=== PATIENT | male | born 2000 | race Caucasian/White ===

== ENCOUNTER 2025-03-25 18:32 | Emergency (ER) | payer OTHER, SELFPAY ==
--- OUTSIDE RECORDS SUMMARY | 2025-03-25 18:38 | XMS_ITS | Patient Health Record ---
Author Organization [employer] Address [address] [place] [id number] Care Team Providers Care Water Server Name Role Phone Kiran Haynes Primary Care Provider Reason For Referral No Information Immunizations Vaccine Route Administration Date Status Comme nts Coronavirus Moderna #1 IM Intramuscular 11/01/2021 Adminis tered DTaP, 6yrs & younger-VFC Unknown 2001 Administere d DTaP, 6yrs & younger-VFC Unknown 2001 Administere d DTaP, 6yrs & younger-VFC Unknown 01/28/2002 Administere d DTaP, 6yrs & younger-VFC Unknown 01/20/2003 Administere d DTaP, 6yrs & younger-VFC Unknown 07/26/2005 Administere d Gardasil-VFC Unknown 04/06/2014 Administered Gardasil-VFC Unknown 06/22/2014 Administered Gardasil-VFC Unknown 04/28/2015 Administered Hepatitis A-Ped-VFC Unknown 04/06/2014 Administered Hepatitis A-Ped-VFC Unknown 04/28/2015 Administered Hepatitis B-Ped-VFC Unknown 2001 Administered Hepatitis B-Ped-VFC Unknown 2001 Administered Hepatitis B-Ped-VFC Unknown 01/28/2002 Administered HIB-VFC Unknown 2001 Administered HIB-VFC Unknown 2001 Administered HIB-VFC Unknown 01/28/2002 Administered HIB-VFC Unknown 07/22/2002 Administered MENINGOCOCCAL - VFC Unknown 04/06/2014 Administered MENINGOCOCCAL - VFC Unknown 04/17/2019 Administered MMR-VFC Unknown 07/26/2005 Administered Pneumococcal-given in the past Unknown 2001 Administered Pneumococcal-given in the past Unknown 2001 Administered Pneumococcal-given in the past Unknown 07/22/2002 Administered Polio-VFC Unknown 2001 Administered Polio-VFC Unknown 2001 Administered Polio-VFC Unknown 01/20/2003 Administered Polio-VFC Unknown 07/26/2005 Administered Tdap 11-100 Yrs old-VFC Unknown 04/06/2014 Administered Varicella-VFC Unknown 04/06/2014 Administered Plan Of Treatment No Information
[2025-03-25 18:56] VITALS: BP 131/81; PULSE 98; TEMP 36.6; O2SAT 98; BMI 29.8
[2025-03-25 19:17] LABS: Hematocrit 46.7 % (37-53); Hemoglobin 16.20 g/dL (11.27-16.99); Mean Corpuscular HGB Conc 34.7 g/dL (30-55); Mean Corpuscular Hemoglobin 29.9 pg (27-33); Mean Corpuscular Volume 86.3 fl (82-101); Nucleated Red Blood Cells % 0 %; Platelet Count 335 10^3/cmm (157-399); Red Blood Count 5.41 10^6/uL (3.85-5.65); White Blood Count 7.35 10^3/uL (3.29-11.43)
--- NOTE | 2025-03-25 19:19 | ED_ITS ---
HPI - Abdominal Pain 2 General: Chief Complaint: Abdominal Pain Stated Complaint: NVD Time Seen by Provider: 03/25/25 19:02 History of Present Illness: 24-year-old man who presents to the [facility] room with nausea vomiting and abdominal pain it has been going on for 2 days now. Says pain is everywhere but most focal in his left upper quadrant. He is had no abdominal surgeries before. He is had diarrhea. No fevers. No altered mental status. Related Data Previous Rx's ?Medication ?Instructions ?Recorded ondansetron 4 mg disintegrating 4 mg PO Q8H PRN nausea and 03/25/25 tablet vomiting #10 tabs tramadol 50 mg tablet 50 mg PO Q8H PRN pain #10 ta bs 03/25/25 Allergies Allergy/AdvReac Type Severity Reaction Status Date / Time No Known Allergies Allergy Verified 03/25/25 19:00 Review of Systems 2 Narrative: Constitutional symptoms: Negative except as documented in HPI. Skin symptoms: Negative except as documented in HPI. Eye symptoms: Negative except as documented in HPI. ENMT symptoms: Negative except as documented in HPI. Respiratory symptoms: Negative except as documented in HPI. Cardiovascular symptoms: Negative except as documented in HPI. Gastrointestinal symptoms: Negative except as documented in HPI. Genitourinary symptoms: Negative except as documented in HPI. Musculoskeletal symptoms: Negative except as documented in HPI. Neurologic symptoms: Negative except as documented in HPI. Psychiatric symptoms: Negative except as documented in HPI. Endocrine symptoms: Negative except as documented in HPI. Physical Exam 2 Narrative: EXAM NARRATIVE: General: Alert, no acute distress. Skin: Warm, dry. Head: Normocephalic, atraumatic. Neck: Supple, trachea midline. Eye: Extraocular movements are intact. Ears, nose, mouth and throat: Tacky oral mucosa Cardiovascular: Regular, Normal peripheral perfusion. Respiratory: Lungs are clear to auscultation, respirations are non-labored, breath sounds are equal, Symmetrical chest wall expansion. Gastrointestinal: Soft, diffuse tenderness, worse in the left upper quadrant, Non distended Musculoskeletal: Normal ROM, no deformity. Neurological: Alert and oriented, No focal neurological deficit observed. Psychiatric: Cooperative, appropriate mood & affect. Course 2 Vital Signs: Vital signs: Vital Signs Temperature 97.9 F 03/25/25 18:56 Pulse Rate 98 03/25/25 18:56 Blood Pressure 131/81 03/25/25 18:56 Pulse Oximetry 98 03/25/25 18:56 Oxygen Delivery Me thod Room Air 03/25/25 18:56 MDM - Abdominal Pain Medical Decision Making Medical decision making: Differential diagnosis for this patient with nausea and vomiting including but not limited to and based on the above HPI, review of systems and physical exam: Urinary tract infection. Appendicitis. Cholecystitis. Colitis. small bowel obstruction. crohn's flare. pancreatitis. gastritis. peptic ulcer. cyclic vomiting. Viral illness. Influenza. COVID. Orders placed to evaluate differential diagnosis based on the above differential, HPI and physical exam Lab Review: Laboratory results were reviewed and interpreted by myself the emergency room physician. No leukocytosis. No anemia. No renal failure. CRP is normal. Urinalysis is negative for infection. I reviewed the patient's medical record. Reexamination: Patient remained stable. No increased work of breathing. No altered mental status. No focal motor deficits. Assessment and plan: Viral gastroenteritis Abdominal pain Dehydration Nausea and vomiting ?Normal saline bolus, Toradol and IV Zofran. - Discharged home - Discussed plan with patient. Answered any questions. - Evaluation and treatment of this problem were appropriate in the emergency setting. Lab Data 03/25/25 19:10 03/25/25 19:10 Labs/Radiology: Laboratory Results WBC 7.35 10^3/uL (3.29-11.43) 03/25/25 19:10 RBC 5.41 10^6/uL (3.85-5.65) 03/25/25 19:10 Hgb 16.20 g/dL (11.27-16.99) 03/25/25 19:10 Hct 46.7 % (37-53) 03/25/25 19:10 MCV 86.3 fl (82-101) 03/25/25 19:10 MCH 29.9 pg (27-33) 03/25/25 19:10 MCHC 34.7 g/dL (30-55) 03/25/25 19:10 RDW 12.0 % (12.1-15.1) L 03/25/25 19:10 Plt Count 335 10^3/cmm (157-399) 03/25/25 19:10 MPV 9.5 fL (7.4-10.4) 03/25/25 19:10 Neut % (Auto) 50.6 % 03/25/25 19:10 Lymph % (Auto) 33.3 % 03/25/25 19:10 Stearns % (Auto) 12.5 % 03/25/25 19:10 Eos % (Auto) 2.4 % 03/25/25 19:10 Baso % (Auto) 1.1 % 03/25/25 19:10 Neut # (Auto) 3.71 10^3/uL (1.8-7.7) 03/25/25 19:10 Lymph # (Auto) 2.5 10^3/uL (0.8-4.8) 03/25/25 19:10 Stearns # (Auto) 0.9 10^3/uL (0.2-0.9) 03/25/25 19:10 Eos # (Auto) 0.2 10^3/uL (0.0-0.8) 03/25/25 19:10 Baso # (Auto) 0.1 10^3/uL (0.0-0.1) 03/25/25 19:10 Nucleated RBC % (auto) 0 % 03/25/25 19:10 Nucleated RBCs # 0.0 /100WBC 03/25/25 19:10 Sodium 140 mmol/L (136-145) 03/25/25 19:10 Potassium 3.7 mmol/L (3.5-5.1) 03/25/25 19:10 Chloride 104 mmol/L (98-107) 03/25/25 19:10 Carbon Dioxide 23 mmol/L (22-29) 03/25/25 19:10 Anion Gap 16.7 (5-19) 03/25/25 19:10 BUN 15 mg/dL (6-20) 03/25/25 19:10 Creatinine 0.9 mg/dL (0.7-1.2) 03/25/25 19:10 GFR Calculation 104.6 mL/min (90-130) 03/25/25 19:10 Glucose 86 mg/dL (65-115) 03/25/25 19:10 Calculated Osmolality 290 mOsm/kg (285-295) 03/25/25 19:10 Calcium 9.3 mg/dL (8.5-10.5) 03/25/25 19:10 Total Bilirubin 0.8 mg/dL (0.15-1.2) 03/25/25 19:10 AST 22 U/L (0-40) 03/25/25 19:10 ALT 26 U/L (0-41) 03/25/25 19:10 Alkaline Phosphatase 53 U/L (40-130) 03/25/25 19:10 C-Reactive Protein 3.0 mg/L (0.0-4.9) 03/25/25 19:10 Total Protein 7.5 g/dL (6.6-8.7) 03/25/25 19:10 Albumin 4.8 g/dL (3.5-5.2) 03/25/25 19:10 Globulin 2.7 g/dL (1.3-4.6) 03/25/25 19:10 Lipase 26 U/L (13-60) 03/25/25 19:10 Urine Color Dark yellow (Yellow) A 03/25/25 19:20 Urine Appearance Clear (CLEAR) 03/25/25 19:20 Urine pH 5.5 (5-7) 03/25/25 19:20 Ur Specific [place] 1.033 (1.005-1.030) H 03/25/25 19:20 Urine Protein Trace (Negative) A 03/25/25 19:20 Urine Glucose (UA) Negative (Normal) 03/25/25 19:20 Urine Ketones Trace (Negative) 03/25/25 19:20 Urine Blood Negative (Negative) 03/25/25 19:20 Urine Nitrate Negative (Negative) 03/25/25 19:20 Urine Bilirubin Negative (Negative) 03/25/25 19:20 Urine Urobilinogen 1.0 mg/dL (Negative) 03/25/25 19:20 Ur Leukocyte Esterase Negative (Negative) 03/25/25 19:20 Urine RBC 0-2 /hpf (0-2) 03/25/25 19:20 Urine WBC 0-5 /hpf (0-5) 03/25/25 19:20 Ur Squamous Epith Cells 0-5 /hpf (0-5) 03/25/25 19:20 Amorphous Sediment Not Reportable 03/25/25 19:20 Urine Bacteria None seen /hpf (NONE) 03/25/25 19:20 Hyaline Casts 1.21 /lpf 03/25/25 19:20 Urine Opiates Screen Positive ng/mL (Negative) H 03/25/25 19:20 Ur Barbiturates Screen Negative ng/mL (Negative) 03/25/25 19:20 Ur Phencyclidine Scrn Negative ng/mL (Negative) 03/25/25 19:20 Ur Amphetamines Screen Negative ng/mL (Negative) 03/25/25 19:20 U Benzodiazepines Scrn Negative ng/mL (Negative) 03/25/25 19:20 Urine Cocaine Screen Negative ng/mL (Negative) 03/25/25 19:20 U Marijuana (THC) Screen Positive ng/mL (Negative) H 03/25/25 19:20 No radiology studies performed this visit Discharge Plan Discharge Patient Disposition: Home Clinical Impression: Gastroenteritis, Nausea & vomiting, Abdominal pain, Dehydration Condition: Stable Prescriptions: New tramadol 50 mg tablet 50 mg PO Q8H PRN (Reason: pain) Qty: 10 0RF ondansetron 4 mg tablet,disintegrating 4 mg PO Q8H PRN (Reason: nausea and vomiting) Qty: 10 0RF Discharge Orders: Discharge ED (Routine); Ordered 03/25/25 Ordered By: Julia Barakat Discharge Diet: Usual diet Discharge Activity: Increase activity as tolerated Patient Instructions: Gastroenteritis (ED), Acute Nausea and Vomiting (ED), Abdominal Pain (ED), Opioid Safety, Pain Management, Patient Portal & Rebel Instructions Activity Restrictions/Additional Instructions: Thank you for choosing [facility] for your healthcare needs today. You have been screened and evaluated and felt safe for discharge. Health conditions do change or evolve sometimes and as such it is important that you follow up with your Primary Doctor to be re checked, 3-5 days is a general good time frame for follow up. You are always welcome to return to the ED for re assessment if your symptoms are worsening or you have new concerns Print Language: Upper Sorbian Coding Level of Care Code ED [employer]
[2025-03-25] MEDS: ondansetron 2 mg/ML SDV 2 mL 8 MG IVP (19:29)
[2025-03-25 19:30] LABS: Glucose Urine UA Negative (Normal); Nitrate Urine Negative (Negative)
[2025-03-25 19:37] LABS: PCP Screen Urine Negative (Negative)
[2025-03-25 19:37] LABS: Alanine Aminotransferase 26 U/L (0-41); Albumin Level 4.8 g/dL (3.5-5.2); Alkaline Phosphatase 53 U/L (40-130); Anion Gap 16.7 (5-19); Aspartate Amino Transferase 22 U/L (0-40); Blood Urea Nitrogen 15 mg/dL (6-20); Calcium 9.3 mg/dL (8.5-10.5); Carbon Dioxide 23 mmol/L (22-29); Chloride 104 mmol/L (98-107); Creatinine Clr Calc Pharmacy 156.1372; Globulin 2.7 g/dL (1.3-4.6); Glucose 86 mg/dL (65-115); Lipase 26 U/L (13-60); Osmolality Calculated 290 mOsm/kg (285-295); Potassium 3.7 mmol/L (3.5-5.1); Sodium 140 mmol/L (136-145); Total Protein 7.5 g/dL (6.6-8.7)
[2025-03-25 19:48] LABS: Specific Gravity, Urine 1.033 (1.005-1.030)
[2025-03-25 19:53] VITALS: BP 134/80; PULSE 87; O2SAT 96
[2025-03-25 20:09] VITALS: BP 127/70; PULSE 84; O2SAT 95
== END 2025-03-25 20:11 | disposition home or self-care (01) ==
PROVIDERS: Emergency Provider Emergency Medicine
DX: K52.9 Noninfective gastroenteritis and colitis, unspecified (principal); R11.2 Nausea with vomiting, unspecified; R10.9 Unspecified abdominal pain; E86.0 Dehydration
CPT/HCPCS: 36415; 80053; 80306; 81001; 83690; 85025; 86140; 96361; 96374; 96375; 99284; J1885; J2405; J7030